=== PATIENT | female | born 1990 | race African-American/Black ===

== ENCOUNTER 2016-12-14 20:32 | Emergency (ER) | payer SELFPAY ==
[~2016-12-14] VITALS: Ht 149.9 cm; Wt 102.0 kg
[~2016-12-14 20:32] MED LIST: GUAI100S6 PO; VENTAER INH
[2016-12-14 20:34] VITALS: BP 127/98; PULSE 84; RESP 16; TEMP 98.5; O2SAT 96
== END 2016-12-14 23:31 | disposition left against medical advice (07) ==
LOC: NED 20:32
DX: R42 Dizziness and giddiness (principal)
CPT/HCPCS: 99281

== ENCOUNTER 2017-04-03 15:01 | Emergency (ER) | payer BC ==
[~2017-04-03] VITALS: Ht 149.9 cm; Wt 107.5 kg
[2017-04-03 15:07] VITALS: BP 143/91; PULSE 91; RESP 18; TEMP 97.6; O2SAT 100
[2017-04-03] MEDS ORDERED: BENZ100 PO (15:24)
--- NOTE | 2017-04-03 15:25 | PD ---
HPI Chief Complaint: cold symptoms Time Seen by Provider: 15:20 Travel History International Travel<30 days: No Contact w/Intl Traveler<30days: No Traveled to known affect area: No History of Present Illness HPI This 26-year-old female is complaining of sore throat and cough. She's been sick for about 2 days. She's been coughing up a lot. She took a Tylenol TheraFlu and Mucinex without much response. She is having a sore throat. She has some lower abdominal pain when she coughs PFSH Past Medical History Diminished Hearing: No ?: Unknown LMP: last week of february Social History Alcohol Use: No Tobacco Use: No Substance Use: No Allergies-Medications (Allergen,Severity, Reaction): Coded Allergies: No Known Allergies (Verified , 04/03/17) Reported Meds & Prescriptions Reported Meds & Active Scripts Active Tessalon Perles (Benzonatate) 100 Mg Cap 200 Mg PO TID PRN Review of Systems General / Constitutional: No: Fever, Chills Eyes: No: Diploplia, Blurred Vision HENT: Positive: Sore Throat, No: Headaches Cardiovascular: No: Chest Pain or Discomfort Respiratory: Positive: Cough Genitourinary: No: Urgency, Frequency Musculoskeletal: No: Myalgias Physical Exam Narrative GENERAL: Well-developed female SKIN: Focused skin assessment warm/dry. HEAD: Atraumatic. Normocephalic. EYES: Pupils equal and round. No scleral icterus. No injection or drainage. ENT: No nasal bleeding or discharge. Mucous membranes pink and moist. Posterior pharynx is erythematous. There is no exudate no lymphadenopathy NECK: Trachea midline. No JVD. CARDIOVASCULAR: Regular rate and rhythm. No murmur appreciated. RESPIRATORY: No accessory muscle use. Clear to auscultation. Breath sounds equal bilaterally. GASTROINTESTINAL: Abdomen soft, non-tender, nondistended. Hepatic and splenic margins not palpable. MUSCULOSKELETAL: No obvious deformities. No clubbing. No cyanosis. No edema. NEUROLOGICAL: Awake and alert. No obvious cranial nerve deficits. Motor grossly within normal limits. Normal speech. PSYCHIATRIC: Appropriate mood and affect; insight and judgment normal. Data Data Last Documented VS Vital Signs Date Time Temp Pulse Resp B/P Pulse Ox O2 Delivery O2 Flow Rate FiO2 04/03/17 15:25 16 5/28/17 15:07 97.6 91 143/91 100 Orders Group A Rapid Strep Screen (04/03/17 15:21) Strep Culture (Group A) (04/03/17 15:25) MDM Medical Decision Making Medical Screen Exam Complete: Yes Emergency Medical Condition: Yes Medical Record Reviewed: Yes Differential Diagnosis Differential includes viral URI, pharyngitis, bronchitis, strep throat Narrative Course Strep test has been ordered and is negative. Impression is viral upper respiratory infection. I'll prescribe Tessalon Perles for her cough Diagnosis Primary Impression: Viral bronchitis Scripts Benzonatate (Tessalon Perles)100 Mg [id number] Mg PO TID PRN (COUGH) #20 CAP Ref 0 Prov:Marty Lomas MD 04/03/17 Disposition: 01 DISCHARGE HOME Condition: Stable Marty Lomas MD April 03, 2017 15:25
== END 2017-04-03 16:11 | disposition home or self-care (01) ==
LOC: PHED 15:01
DX: J20.8 Acute bronchitis due to other specified organisms (principal); Z11.59 Encounter for screening for other viral diseases
CPT/HCPCS: 87081; 87880; 99283